=== PATIENT | female | born 1960 | race Caucasian/White ===

== ENCOUNTER 2018-09-03 05:48 | Day surgery (SDC) | payer MEDICARE ==
[2018-09-02 09:49] LABS: BASOPHILS # (AUTO) 0.04 x10^3/uL (0-0.1); BASOPHILS % (AUTO) 1 % (0-1); EOSINOPHILS % (AUTO) 3 % (1-7); LYMPHOCYTES # (AUTO) 2.29 x10^3/uL (1-3.4); LYMPHOCYTES % (AUTO) 30 % (22-44); MD NO; MEAN CORPUSCULAR HEMOGLOBIN 30.6 pg (27.0-34.8); MEAN CORPUSCULAR HGB CONC 33.3 g/dL (32.4-35.8); MEAN CORPUSCULAR VOLUME 91.9 fL (80-100); MEAN PLATELET VOLUME 8.1 fL (7.4-10.4); MONOCYTES # (AUTO) 0.58 x10^3/uL (0.2-0.8); MONOCYTES % (AUTO) 8 % (2-9); NEUTROPHILS # (AUTO) 4.61 x10^3/uL (1.8-6.8); NEUTROPHILS % (AUTO) 60 % (42-75); PLATELET COUNT 375 x10^3/uL (130-400); RED BLOOD COUNT 5.07 x10^6/uL (3.82-5.3)
[2018-09-02 09:57] LABS: INTERNATIONAL NORMALIZED RATIO 0.94 (0.93-1.1)
[2018-09-02 09:58] LABS: ALANINE AMINOTRANSFERASE 27 U/L (12-78); ALBUMIN 3.9 g/dL (3.4-5.0); ANION GAP 5 mmol/L (5-15); CALCIUM 10.2 mg/dL (8.5-10.1); CHLORIDE 110 mmol/L (98-107); CREATININE 0.87 mg/dL (0.55-1.02)
[2018-09-02 10:00] LABS: ALKALINE PHOSPHATASE 61 U/L (45-117); BILIRUBIN,TOTAL 0.5 mg/dL (0.2-1.0); TOTAL PROTEIN 6.9 g/dL (6.4-8.2)
[~2018-09-03] VITALS: Ht 152.4 cm; Wt 71.4 kg
[~2018-09-03 05:48] MED LIST: EREN70AU INJ; HYDR20TA23 PO; ONDA4TAB13 SL; PRAS25CA6 PO; ZOLM5TAB10 PO; [UNRECOGNIZED DRUG - OTHER] PO; nature thyroid PO
[2018-09-03 06:10] VITALS: BP 102/77
[2018-09-03] MEDS ORDERED: LACTATED RINGERS 1,000 ML IV SCH (06:13)
[2018-09-03] MEDS ORDERED: BUPIVACAINE/PF-EPI 0.5% 1:200K ONE (06:26)
[2018-09-03] MEDS ORDERED: MIDAZOLAM 1 MG/ML, 2ML ONE (06:40)
[2018-09-03] MEDS ORDERED: FENTANYL PF 250 MCG/5ML ONE (06:41)
[2018-09-03] MEDS ORDERED: NEOSTIGMINE 1 MG/ML, 10ML ONE (06:55)
[2018-09-03] MEDS ORDERED: GLYCOPYRROLATE 0.2MG/1ML, 5ML ONE (06:55)
[2018-09-03] MEDS ORDERED: KETOROLAC 30 MG/1 ML ONE (06:55)
[2018-09-03] MEDS ORDERED: ROCURONIUM 10 MG/ML,10ML ONE (06:55)
[2018-09-03] MEDS ORDERED: PROPOFOL 10 MG/ML, 20ML ONE (06:55)
[2018-09-03] MEDS ORDERED: DEXAMETHASONE 4 MG/ML, 1ML ONE (06:55)
[2018-09-03] MEDS ORDERED: CEFAZOLIN 1,000 MG ONE (06:55)
[2018-09-03] MEDS ORDERED: ONDANSETRON 2MG/ML, 2ML ONE (06:55)
[2018-09-03] MEDS ORDERED: LABETALOL 5MG/ML, 20ML IV PRN (07:30)
[2018-09-03] MEDS ORDERED: hydrALAzine 20 MG/ML, 1ML IV PRN (07:30)
[2018-09-03] MEDS ORDERED: MORPHINE SULFATE 4 MG/ML, 1ML IVPush PRN (07:30)
[2018-09-03] MEDS ORDERED: PROMETHAZINE 25 MG/ML, 1ML IV PRN (07:30)
[2018-09-03] MEDS ORDERED: ALBUTEROL SULFATE 2.5 MG/3 ML NPPB PRN (07:30)
[2018-09-03] MEDS ORDERED: ACETAMINOPHEN 325 MG TABLET PO PRN (07:30)
[2018-09-03] MEDS ORDERED: MEPERIDINE/PF 25MG/0.5ML IVPush PRN (07:30)
[2018-09-03] MEDS ORDERED: OXYcodone 5 MG/5 ML ORAL.SOL UDC PO PRN (07:30)
[2018-09-03] MEDS ORDERED: FENTANYL PF 100 MCG/2ML ONE (07:47)
[2018-09-03] MEDS ORDERED: PROMETHAZINE 25 MG/ML, 1ML ONE (07:47)
[2018-09-03] MEDS ORDERED: ACETAMINOPHEN 650 MG/20.3 ML UDC ONE (08:01)
[2018-09-03] MEDS ORDERED: OXYcodone 5 MG/5 ML ORAL.SOL UDC ONE (08:02)
[2018-09-03] MEDS: FENTANYL PF 100 MCG/2ML IV PRN ×2 (08:07→08:12)
[2018-09-03] MEDS ORDERED: HYDROmorphone 2 MG/ML, 1ML ONE (08:14)
[2018-09-03] MEDS: HYDROmorphone 2 MG/ML, 1ML IVPush PRN ×5 (08:22→08:50)
[2018-09-03] MEDS ORDERED: PROMETHAZINE 12.5 MG SUPP PR ONE (10:30)
== END 2018-09-03 12:05 | disposition home or self-care (01) ==
LOC: OUT 05:48
PROVIDERS: ATTEND Surgery
DX: K80.12 Calculus of gallbladder with acute and chronic cholecystitis without obstruction (principal); G43.909 Migraine, unspecified, not intractable, without status migrainosus; G62.9 Polyneuropathy, unspecified; Z90.710 Acquired absence of both cervix and uterus; Z98.890 Other specified postprocedural states; Z79.899 Other long term (current) drug therapy; Z88.1 Allergy status to other antibiotic agents; Z72.89 Other problems related to lifestyle
CPT/HCPCS: 36415; 47562; 80053; 83690; 85025; 85610; 88304; 93005; J0690; J1100; J1170; J1885; J2250; J2405; J2704; J2710; J3010; J3490; J7120